=== PATIENT | female | born 1980 | race Caucasian/White ===

== ENCOUNTER → 2016-10-30 | Outpatient (CLI) | payer OTHER ==
[2016-10-30 11:57] LABS: CHCM 34.9; HCT 37.6 % (34.0-46.0); HGB 13.6 gm/dL (11.4-16.0); MCH 32.2 pg (25.0-35.0); MCHC 36.1 g/dL (31.0-37.0); MCV 89.4 fL (80.0-100.0); Mean Platelet Volume 6.8; RBC 4.21 m/uL (3.80-5.40); RDW 12.6 % (11.5-15.5); WBC 7.4 k/uL (3.8-10.6)
[2016-10-30 12:13] LABS: Glucose 116 mg/dL (74-99); Non-African American GFR(MDRD) >60 (>60 ml/min/1.73 sqM)
[2016-10-30 12:40] LABS: Hepatitis B Surface Ag Index 0.05
[2016-10-30 15:26] LABS: Treponemal Ab Non-Reactive (Non-Reactive)
[2016-10-31 11:53] LABS: Alpha Fetoprotein 27.2 ng/mL; Down Sydrome Risk 1:N/A (Negative); Gestational Age (days) 3; Human Chorionic Gonadotropin 61.1 IU/mL; Interpretation SeeBelow; Maternal Age Risk for Down 1:N/A; Maternal Age at EDD (Yrs) 38; Smoker No
== END | disposition home or self-care (01) ==
LOC: LABWHC1 11:27
PROVIDERS: ATTEND Obstetrics & Gynecology
DX: O26.811 Pregnancy related exhaustion and fatigue, first trimester (principal); Z3A.00 Weeks of gestation of pregnancy not specified
CPT/HCPCS: 36415; 82105; 82565; 82677; 82947; 84702; 85027; 86336; 86762; 86780; 86850; 86900; 86901; 87340; 87390

== ENCOUNTER → 2016-11-21 | Outpatient (CLI) | payer OTHER ==
[2016-11-22 09:13] LABS: Alpha Fetoprotein 60.6 ng/mL; B-HCG (M.O.M.) 1.18; Gestational Age (days) 4; Human Chorionic Gonadotropin 34.7 IU/mL; Inhibin A (M.O.M.) 0.93; Interpretation SeeBelow; Maternal Age at EDD (Yrs) 38; Smoker No
== END | disposition home or self-care (01) ==
LOC: LABWHC1 16:11
PROVIDERS: ATTEND Obstetrics & Gynecology
DX: Z34.82 Encounter for supervision of other normal pregnancy, second trimester (principal); Z3A.00 Weeks of gestation of pregnancy not specified
CPT/HCPCS: 36415; 82105; 82677; 84702; 86336

== ENCOUNTER → 2017-02-01 | Outpatient (CLI) | payer OTHER ==
[2017-02-01 10:27] LABS: CHCM 32.8; HCT 34.9 % (34.0-46.0); HGB 11.9 gm/dL (11.4-16.0); MCH 31.2 pg (25.0-35.0); MCV 91.9 fL (80.0-100.0); RDW 13.3 % (11.5-15.5); WBC 10.5 k/uL (3.8-10.6)
== END | disposition home or self-care (01) ==
LOC: LABWHC1 08:42
PROVIDERS: ATTEND Obstetrics & Gynecology
DX: Z34.82 Encounter for supervision of other normal pregnancy, second trimester (principal); Z3A.00 Weeks of gestation of pregnancy not specified
CPT/HCPCS: 36415; 82950; 85027

== ENCOUNTER 2017-04-30 07:53 | Inpatient (IN) | payer OTHER ==
[2017-04-30 08:29] LABS: Glucose,Whole Blood 82 mg/dL (75-99)
[2017-04-30] MEDS ORDERED: LIDOCAINE 1% (PF) 10 MG/ML (30 ML SDV) SQ PRN (09:00)
[2017-04-30] MEDS ORDERED: METHYLERGONOVINE 0.2 MG/ML 1 ML AMP IM PRN (09:00)
[2017-04-30] MEDS ORDERED: OXYTOCIN 20 UNITS/1000 ML NS 1,000 ML IV SCH (09:00)
[2017-04-30] MEDS ORDERED: AMPICILLIN 2,000 MG in SODIUM CHLORIDE 0.9% 100 ML IVPB STA (09:00)
[2017-04-30] MEDS ORDERED: OXYTOCIN 10 UNIT/ML 1 ML VIAL IM PRN (09:00)
[2017-04-30] MEDS ORDERED: TERBUTALINE 1 MG/ML VIAL SQ PRN (09:00)
[2017-04-30] MEDS ORDERED: CARBOPROST TROMETHAMINE 250 MCG/ML 1 ML AMP IM PRN (09:00)
[2017-04-30 09:21] VITALS: BMI 33.3
[2017-04-30 10:03] LABS: Basophils % (A) 0 %; Eosinophils % (A) 1 %; HCT 37.8 % (34.0-46.0); Hypochromasia Slight; Lymphocytes # (A) 1.4 k/uL (1.0-4.8); Lymphocytes % (A) 16 %; MCH 28.3 pg (25.0-35.0); MCHC 31.7 g/dL (31.0-37.0); MCV 89.4 fL (80.0-100.0); Mean Platelet Volume 8.8; Monocytes # (A) 0.4 k/uL (0-1.0); Monocytes % (A) 5 %; Neutrophils # (A) 6.8 k/uL (1.3-7.7); Neutrophils % (A) 77 %; Platelet Count 204 k/uL (150-450); RBC 4.22 m/uL (3.80-5.40); RDW 14.6 % (11.5-15.5); WBC 8.8 k/uL (3.8-10.6)
[2017-04-30 11:47] LABS: Glucose,Whole Blood 75 mg/dL (75-99)
[2017-04-30] MEDS ORDERED: fentaNYL (PF) 50 MCG/ML 5 ML AMP ONE (12:05)
[2017-04-30] MEDS ORDERED: SODIUM CHLORIDE 0.9% 100 ML BAG ONE (12:05)
[2017-04-30] MEDS ORDERED: BUPIVACAINE (PF) 0.25% 30 ML VIAL ONE (12:05)
[2017-04-30] MEDS ORDERED: ePHEDrine SULFATE/0.9% NACL/PF 50 MG/5 ML SYRINGE IV ONE (12:05)
[2017-04-30] MEDS: LACTATED RINGERS 1,000 ML IV SCH (12:26)
[2017-04-30] MEDS ORDERED: BUPIVACAINE (PF) 0.25% 25 ML, fentaNYL (PF) 200 MCG in SODIUM CHLORIDE 0.9% 71 ML EPIDURAL ONE (12:40)
[2017-04-30 12:48] LABS: Glucose,Whole Blood 87 mg/dL (75-99)
[2017-04-30] MEDS: AMPICILLIN 1,000 MG in SODIUM CHLORIDE 0.9% 50 ML IVPB SCH (13:31)
[2017-04-30 13:47] LABS: Glucose,Whole Blood 86 mg/dL (75-99)
[2017-04-30 14:46] LABS: Glucose,Whole Blood 83 mg/dL (75-99)
[2017-04-30 15:46] LABS: Glucose,Whole Blood 68 mg/dL (75-99)
[2017-04-30] MEDS ORDERED: diphenhydrAMINE 50 MG/ML 1 ML VIAL IVP PRN ×2 (17:15)
[2017-04-30] MEDS ORDERED: ACETAMINOPHEN TAB 325 MG TAB PO PRN (17:15)
[2017-04-30] MEDS ORDERED: LANOLIN CREAM 5 GM TUBE TOPICAL PRN (17:15)
[2017-04-30] MEDS ORDERED: diphenhydrAMINE 50 MG CAP PO PRN (17:15)
[2017-04-30] MEDS ORDERED: diphenhydrAMINE 25 MG CAP PO PRN (17:15)
[2017-04-30] MEDS ORDERED: SIMETHICONE 80 MG CHEWABLE PO PRN (17:15)
[2017-04-30] MEDS ORDERED: HYDROCORTISONE 2.5% RECTAL CREAM 30 GM TUBE RECTAL PRN (17:15)
[2017-04-30] MEDS ORDERED: Acetaminophen-Codeine 300-30mg TAB PO PRN ×2 (17:15)
[2017-04-30] MEDS ORDERED: BENZOCAINE/MENTHOL SPRAY 1 GM/SPRAY AEROSOL TOPICAL PRN (17:15)
[2017-04-30] MEDS ORDERED: ZOLPIDEM 5 MG TAB PO PRN (17:15)
[2017-04-30] MEDS ORDERED: WITCH HAZEL 1 EACH MED..PAD TOPICAL PRN (17:15)
--- NOTE | 2017-04-30 17:19 | P.HPOB ---
History of Present Illness H&P Date: 04/30/17 Chief Complaint: IUP at 39 weeks: Active labor: Gestational diabetes Is a 36-year-old G1 at 39 weeks gestation who arrives in active labor making cervical change dilated to 3 cm. Her course has been, K by gestational diabetes for which she was switched on the insulin late in the . Otherwise she has had no significant problems with the . Pertinent labs did include O+ blood type Rh antibody was negative, rubella immune, hepatitis B surface antigen/RPR/HIV and quad screen were all normal. On physical exam vital signs are stable and afebrile. Heart regular, lungs clear, extremities without pain. Osteopathic exam is unremarkable. She heart tones 1 130s to 140s and reactive. Assessment intrauterine at term. Gestational diabetes. Active labor. Plan expect spontaneous vaginal delivery with plans for epidural for analgesia. Pitocin augmentation of labor. Past Medical History Past Medical History: No Reported History History of Any Multi-Drug Resistant Organisms: None Reported Additional Past Surgical History / Comment(s): 1989 right ovary fallopian tube and appenectomy Past Psychological History: Anxiety, Depression Smoking Status: Former smoker - Past Family History Father Family Medical History: No Reported History Medications and Allergies Home Medications Medication Instructions Recorded Confirmed Type FLUoxetine HCL [PROzac] 40 mg PO DAILY 02/13/17 02/13/17 History Allergies Allergy/AdvReac Type Severity Reaction Status Date / Time No Known Allergies Allergy Verified 04/30/17 08:00 Exam Osteopathic Statement: *. No significant issues noted on an osteopathic structural exam other than those noted in the History and Physical/Consult. - Vital Signs Vital signs: Vital Signs Temp Pulse Resp BP BP Pulse Ox 04/30/17 17:05 98.0 F 91 16 122/69 04/30/17 08:00 98.2 F 69 16 121/83 99 Intake and Output 04/30/17 04/30/17 04/30/17 06:59 14:59 22:59 Intake Total 1700 Balance 1700 Intake: IV 1700 Lactated Ringers 1,000 ml 1700 @ 125 mls/hr IV .Q8H ROSEMARIE Rx#:[id number] Other: Weight 85.275 kg Patient Weight 05/01/17 06:59 Weight 85.275 kg Results Result Diagrams: 04/30/17 09:20 Abnormal Lab Results - Last 24 Hours (Table) 04/30/17 Range/Units 15:35 POC Glucose (mg/dL) 68 L (75-99) mg/dL
--- NOTE | 2017-04-30 17:20 | P.PROBDLV ---
Vaginal Delivery Note - . Vaginal Delivery Note: To complete and pushing with spontaneous vaginal delivery of a viable male over a first-degree perineal laceration. Following delivery of the head anterior posterior shoulders were delivered with gentle downward upper traction followed by the remainder the baby. Mouth nares were then bulb suctioned and baby was placed on mother's abdomen where the umbilical cord was clamped cut usual fashion an nursery personnel was present to assume care. Placenta was then delivered intact and Pitocin was added to the IV. Inspection of perineum revealed a first the laceration which was repaired in interrupted fashion with 3-0 Vicryl and a small tear on the right side of the vagina near the base between 6 and 8:00 which was again repaired with interrupted 3-0 Vicryl. There are 2 slight avulsion's in the vagina but these were not bleeding and were left alone. scores are pending as is the weight currently both mother and baby appear stable.
[2017-04-30] MEDS: SENNOSIDES-DOCUSATE SODIUM 1 EACH TAB PO SCH (23:47)
[2017-05-01] MEDS: SENNOSIDES-DOCUSATE SODIUM 1 EACH TAB PO SCH ×2 (07:58→21:15)
--- NOTE | 2017-05-01 08:25 | P.PNOBGVD ---
Subjective - Subjective Principal diagnosis: Post day 1 Interval history: Overall doing very well. Involuting, voiding and tolerating her diet. She voices no complaints. Patient reports: Reports appetite normal, Reports voiding normally, Reports pain well controlled, Reports ambulating normally [place]: doing well Objective - Latest Vital Signs Latest vital signs: Vital Signs Temp Pulse Resp BP Pulse Ox 05/01/17 04:00 98.3 F 140 H 50 H 05/01/17 00:00 98.2 F 145 H 55 H 04/30/17 20:00 98.0 F 100 16 110/70 98 04/30/17 19:05 97.3 F L 80 16 120/70 04/30/17 18:18 81 16 120/70 04/30/17 18:04 96 16 123/73 04/30/17 17:50 90 16 111/54 04/30/17 17:35 86 16 128/67 04/30/17 17:20 93 16 123/64 04/30/17 17:05 98.0 F 91 16 122/69 Intake and Output 04/30/17 05/01/17 05/01/17 22:59 06:59 14:59 Other: # Voids 1 - Exam Lungs: bilateral: normal Chest: Normal S1, Normal S2 Extremities: Present: normal Abdomen: Present: normal appearance, soft Uterus: Present: normal, firm - Labs Labs: Abnormal Lab Results - Last 24 Hours (Table) 04/30/17 Range/Units 15:35 POC Glucose (mg/dL) 68 L (75-99) mg/dL
[2017-05-01] MEDS: IBUPROFEN 600 MG TAB PO PRN ×2 (10:35→17:43)
[2017-05-01 19:56] LABS: Glucose,Whole Blood 117 mg/dL (75-99)
[2017-05-01] MEDS: AMPICILLIN 1,000 MG in SODIUM CHLORIDE 0.9% 50 ML IVPB SCH ×2 (21:16→21:17)
[2017-05-01] MEDS: LACTATED RINGERS 1,000 ML IV SCH (21:17)
[2017-05-02 04:44] VITALS: TEMP 97.8
[2017-05-02] MEDS: IBUPROFEN 600 MG TAB PO PRN (06:22)
[2017-05-02 09:05] VITALS: BP 128/78; PULSE 64; RESP 16
[2017-05-02] MEDS ORDERED: DIPH,PERTUS(ACELL)TETVAC-LF 0.5 ML VIAL IM ONE (09:40)
--- NOTE | 2017-05-02 10:13 | P.DS ---
Providers Date of admission: 04/30/17 08:44 Expected date of discharge: 05/02/17 Attending physician: [facility] Course: Janine is doing very well day 2. She is ambulating, voiding, and she is tolerating her diet. She voices no complaints. Vital signs are stable and afebrile. Heart regular, lungs clear, extremities without pain. Abdomen is soft uterus is firm and lochia is reported to be light. Assessment day 2. Plan discharged home follow up with me in 6 weeks. Prescription for breast pump has been provided and discharge instructions thoroughly reviewed. She is stable for discharge this time. Patient Condition at Discharge: Good Plan - Discharge Summary New Discharge Prescriptions: No Action FLUoxetine HCL [PROzac] 40 mg PO DAILY Discharge Medication List FLUoxetine HCL [PROzac] 40 mg PO DAILY 02/13/17 [History] Follow up Appointment(s)/Referral(s): John Peoples DO [Doctor of Osteopathic Medicine] - 6 Weeks Activity/Diet/Wound Care/Special Instructions: No heavy lifting, limit stairs and driving, and pelvic rest. Call the office for any high tempratures, heavy bleeding, or severe pain Discharge Disposition: HOME SELF-CARE
[2017-05-02] MEDS: SENNOSIDES-DOCUSATE SODIUM 1 EACH TAB PO SCH (14:05)
== END 2017-05-02 14:25 | disposition home or self-care (01) | DRG 775 ==
LOC: FBPOP 07:53 → 4FBP 08:44
PROVIDERS: ADMIT Obstetrics & Gynecology; ATTEND Obstetrics & Gynecology
PROC: 10E0XZZ Delivery of Products of Conception, External Approach (ICD-10-PCS; principal; 2017-04-30)
PROC: 0HQ9XZZ Repair Perineum Skin, External Approach (ICD-10-PCS; 2017-04-30)
PROC: 00HU33Z Insertion of Infusion Device into Spinal Canal, Percutaneous Approach (ICD-10-PCS; 2017-04-30)
PROC: 3E0R3NZ Introduction of Analgesics, Hypnotics, Sedatives into Spinal Canal, Percutaneous Approach (ICD-10-PCS; 2017-04-30)
DX: O24.424 Gestational diabetes mellitus in childbirth, insulin controlled (principal); O99.344 Other mental disorders complicating childbirth; F32.9 Major depressive disorder, single episode, unspecified; O70.0 First degree perineal laceration during delivery; F41.9 Anxiety disorder, unspecified; Z37.0 Single live birth; Z3A.39 39 weeks gestation of pregnancy; Z87.891 Personal history of nicotine dependence; Z79.899 Other long term (current) drug therapy
CPT/HCPCS: 59025; 85025; 88307; 90715; 99213

== ENCOUNTER → 2017-07-09 | Outpatient (CLI) | payer OTHER | END | disposition home or self-care (01) | LOC: LABWHC1 13:36 | PROVIDERS: ATTEND Physician Assistant | DX: N91.2 Amenorrhea, unspecified (principal) | CPT/HCPCS: 81025 ==

== ENCOUNTER → 2017-07-09 | Outpatient (CLI) | payer OTHER ==
--- NOTE | 2017-07-09 17:31 | XR ---
Bilateral wrists HISTORY: Bilateral wrist pain 4 views of each wrist submitted There is positive ulnar variance present bilaterally. Bone mineralization and joint spaces are mainta ined. No fracture or dislocation. Probable geode cyst noted incidentally within the carpal bones. IMPRESSION: Positive ulnar variance, wrist MRI may be of benefit.
== END | disposition home or self-care (01) ==
LOC: RADXRMAIN 12:20
PROVIDERS: ATTEND Family Medicine
DX: M25.531 Pain in right wrist (principal); M25.532 Pain in left wrist

== ENCOUNTER 2017-08-05 10:56 | Emergency (ER) | payer OTHER ==
[2017-08-05 11:41] VITALS: RESP 18
[2017-08-05 12:37] LABS: HCT 43.9 % (34.0-46.0); HGB 14.5 gm/dL (11.4-16.0); MCH 28.2 pg (25.0-35.0); MCV 85.2 fL (80.0-100.0); Mean Platelet Volume 6.8; Platelet Count 323 k/uL (150-450); RBC 5.15 m/uL (3.80-5.40); RDW 15.4 % (11.5-15.5); WBC 8.4 k/uL (3.8-10.6)
[2017-08-05 12:46] LABS: ALT 31 U/L (9-52); AST 34 U/L (14-36); Albumin 4.1 g/dL (3.5-5.0); Alkaline Phosphatase 154 U/L (38-126); Anion Gap 14 mmol/L; Blood Urea Nitrogen 16 mg/dL (7-17); Calcium 9.8 mg/dL (8.4-10.2); Carbon Dioxide 22 mmol/L (22-30); Chloride 106 mmol/L (98-107); Glucose 77 mg/dL (74-99); Potassium 4.7 mmol/L (3.5-5.1); Sodium 142 mmol/L (137-145); Total Bilirubin 0.4 mg/dL (0.2-1.3); Total Protein 7.5 g/dL (6.3-8.2)
--- NOTE | 2017-08-05 13:18 | XR ---
EXAMINATION TYPE: XR chest 2V DATE OF EXAM: 08/05/2017 COMPARISON: None HISTORY: 37-year-old female with chest and back pain, hemoptysis TECHNIQUE: PA and lateral views FINDINGS: The cardiomediastinal silhouette, aorta, and pulmonary vasculature are within normal limits. Some str prasanna atelectasis in the lower lungs. Otherwise, lungs and pleural spaces are clear. IMPRESSION: No acute cardiopulmonary process.
--- NOTE | 2017-08-05 13:39 | ED ---
URI HPI - General Chief Complaint: Upper Respiratory Infection Stated Complaint: cough Time Seen by Provider: 08/05/17 13:27 Source: patient Mode of arrival: ambulatory Limitations: no limitations - History of Present Illness Initial Comments: Patient presents with cough for approximately one half weeks. She states she was seen by primary care physician, completed a course of azithromycin. Patient states cough improved, however it returned last night, states she had severe coughing fit, causing her to have right lateral rib pain. Denies any pain at rest, pain only occurs when coughing. Denies any trauma to the ribs. Patient states she's had some postnasal drip. Denies fevers, chills, nausea, vomiting, diarrhea. Patient states she has had some yellowish green sputum with cough. MD Complaint: cough, rhinorrhea Severity: moderate - Related Data Home Medications Medication Instructions Recorded Confirmed FLUoxetine HCL [PROzac] 40 mg PO DAILY 02/13/17 08/05/17 Ibuprofen [Advil] 800 - 1,200 mg PO Q6HR PRN 08/05/17 08/05/17 Previous Rx's Medication Instructions Recorded Albuterol Inhaler [Ventolin Hfa 1 - 2 puff INHALATION Q4HR PRN #1 08/05/17 Inhaler] inhaler Allergies Allergy/AdvReac Type Severity Reaction Status Date / Time No Known Allergies Allergy Verified 08/05/17 13:23 Review of Systems ROS Statement: Those systems with pertinent positive or pertinent negative responses have been documented in the HPI. Constitutional: Denies: fever, chills, weakness Eyes: Denies: eye pain, eye discharge ENT: Reports: other (Postnasal drip). Denies: ear pain, throat pain, congestion Respiratory: Reports: cough, hemoptysis (Mild, blood-tinged sputum once this morning.). Denies: dyspnea, wheezes, stridor Cardiovascular: Reports: chest pain (Right lateral ribs, only when coughing.) Endocrine: Denies: fatigue Gastrointestinal: Denies: abdominal pain, nausea, vomiting, diarrhea, constipation Genitourinary: Denies: urgency, dysuria Musculoskeletal: Denies: back pain, arthralgia, myalgia Skin: Denies: rash, change in color Neurological: Denies: headache, confusion Past Medical History Past Medical History: No Reported History History of Any Multi-Drug Resistant Organisms: None Reported Past Surgical History: Appendectomy Additional Past Surgical History / Comment(s): 1989 right ovary fallopian tube Past Psychological History: Anxiety, Depression Smoking Status: Former smoker Past Alcohol Use History: Occasional Past Drug Use History: None Reported - Past Family History Father Family Medical History: No Reported History General Exam - General Exam Comments Initial Comments: Sitting up in chair, well-appearing, smiling and laughing. Very pleasant. Conversing normally. Limitations: no limitations General appearance: alert, in no apparent distress Head exam: Present: atraumatic, normocephalic Eye exam: Present: normal appearance, PERRL, EOMI. Absent: scleral icterus, conjunctival injection, nystagmus, periorbital swelling ENT exam: Present: normal oropharynx, mucous membranes moist, normal external ear exam Neck exam: Present: normal inspection, full ROM. Absent: meningismus Respiratory exam: Present: normal lung sounds bilaterally, chest wall tenderness (Mild right lateral chest wall tenderness). Absent: respiratory distress, wheezes, rales, rhonchi, stridor Cardiovascular Exam: Present: regular rate, normal rhythm GI/Abdominal exam: Present: soft. Absent: distended, tenderness, guarding, rebound Extremities exam: Present: other (No gross deformities of the extremities) Neurological exam: Present: alert, oriented X3 Psychiatric exam: Present: normal affect, normal mood Skin exam: Present: warm, dry, intact, normal color. Absent: rash, cyanosis, diaphoretic, erythema Course Vital Signs 08/05/17 11:38 Temperature 97.4 F L Pulse Rate 81 Respiratory 18 Rate Blood Pressure 129/76 O2 Sat by Pulse 95 Oximetry Medical Decision Making - Medical Decision Making No significant lab abnormalities on CBC, BMP, LFTs. Chest x-ray shows no acute process. Labs and chest x-ray were ordered by triage prior to patient being seen by physician. Patient updated with all results. No signs of sepsis at this time. Patient's hemoptysis likely secondary to bronchitis. Patient states she has a primary care physician she can follow up within 1-2 days. Discussed symptomatic control , hydration. Tylenol for pain has patient is breast-feeding. Prescription albuterol given. Junk ER for new or worsening symptoms. Patient understands and agrees. At this time I do not believe patient's symptoms represent a more malignant process requiring IV antibiotics, admission to hospital, further workup. Patient agrees. - Lab Data Result diagrams: 08/05/17 12:20 08/05/17 12:20 Lab Results 08/05/17 08/05/17 08/05/17 Range/Units 12:20 12:20 12:20 WBC 8.4 (3.8-10.6) k/uL RBC 5.15 (3.80-5.40) m/uL Hgb 14.5 (11.4-16.0) gm/dL Hct 43.9 (34.0-46.0) % MCV 85.2 (80.0-100.0) fL MCH 28.2 (25.0-35.0) pg MCHC 33.0 (31.0-37.0) g/dL RDW 15.4 (11.5-15.5) % Plt Count 323 (150-450) k/uL Sodium 142 (137-145) mmol/L Potassium 4.7 (3.5-5.1) mmol/L Chloride 106 (98-107) mmol/L Carbon Dioxide 22 (22-30) mmol/L Anion Gap 14 mmol/L BUN 16 (7-17) mg/dL Creatinine 0.82 (0.52-1.04) mg/dL Est GFR (CKD-EPI)AfAm >90 (>60 ml/min/1.73 sqM) Est GFR (CKD-EPI)NonAf >90 (>60 ml/min/1.73 sqM) Glucose 77 (74-99) mg/dL Calcium 9.8 (8.4-10.2) mg/dL Total Bilirubin 0.4 (0.2-1.3) mg/dL AST 34 (14-36) U/L ALT 31 (9-52) U/L Alkaline Phosphatase 154 H (38-126) U/L Total Protein 7.5 (6.3-8.2) g/dL Albumin 4.1 (3.5-5.0) g/dL Urine HCG, Qual Not Detected (Not Detectd) Disposition Clinical Impression: Bronchitis Disposition: HOME SELF-CARE Condition: Good Instructions: Acute Bronchitis (ED) Additional Instructions: Follow-up with your primary care physician one to 2 days. Return to ER for worsening symptoms. Prescriptions: Albuterol Inhaler [Ventolin Hfa Inhaler] 1 - 2 puff INHALATION Q4HR PRN #1 inhaler PRN Reason: Shortness Of Breath Is patient prescribed a controlled substance at discharge?: No Referrals: Sergio Walton MD [Primary Care Provider] - 1-2 days
[2017-08-05 14:03] VITALS: BP 131/70; PULSE 67; TEMP 98.1
== END 2017-08-05 14:03 | disposition home or self-care (01) ==
LOC: EC 10:56
DX: J40 Bronchitis, not specified as acute or chronic (principal); J34.89 Other specified disorders of nose and nasal sinuses; R09.82 Postnasal drip; F32.9 Major depressive disorder, single episode, unspecified; F41.9 Anxiety disorder, unspecified; Z87.891 Personal history of nicotine dependence; Z79.899 Other long term (current) drug therapy
CPT/HCPCS: 36415; 71046; 80053; 81025; 85027; 99283

== ENCOUNTER → 2018-09-12 | Outpatient (CLI) | payer BC ==
--- NOTE | 2018-09-12 11:57 | XR ---
EXAMINATION TYPE: XR ankle complete LT DATE OF EXAM: 09/12/2018 COMPARISON: NONE HISTORY: Palpable abnormality FINDINGS: Three views of the ankle demonstrate the ankle mortise to be intact and symmetric. The joint spaces are preserved. The osseous structures are intact. Tiny spurs at the calcaneal plantar and Achilles insertion. IMPRESSION: 1. No definite acute fracture or dislocation, if symptoms persist follow-up study in 7 to 10 days wou ld be suggested.
--- NOTE | 2018-09-12 12:00 | XR ---
EXAMINATION TYPE: XR foot complete LT DATE OF EXAM: 09/12/2018 COMPARISON: NONE HISTORY: Pain on the dorsum of the foot with lump TECHNIQUE: Three views are submitted. FINDINGS: The osseous structures are intact. There is no acute fracture or dislocation. Joint spaces are p reserved. Calcaneal tiny spurs are noted. Hypertrophic change of the head first metatarsal noted. IMPRESSION: 1. No osseous lesion identified. If there is concern for soft tissue abnormality correlate with MRI.
== END | disposition home or self-care (01) ==
LOC: RADXRMAIN 11:15
PROVIDERS: ATTEND Midwife
DX: S93.402S Sprain of unspecified ligament of left ankle, sequela (principal)

== ENCOUNTER → 2018-10-01 | Outpatient (CLI) | payer BC ==
--- NOTE | 2018-10-02 10:21 | XR ---
Lumbar spine HISTORY: Low back pain with radiation to legs 3 views of the lumbar spine Lumbar vertebral bodies show preserved height, alignment, and bone mineralization. 6 nonrib-bearing l umbar segments are present. Some loss of disc height at the lumbosacral junction. Sclerosis present i n the posterior element compatible with facet arthropathy. IMPRESSION: Degenerative disc disease and facet arthropathy.
== END | disposition home or self-care (01) ==
LOC: RADXRMAIN 16:04
PROVIDERS: ATTEND Family Medicine
DX: M51.36 Other intervertebral disc degeneration, lumbar region (principal); M46.96 Unspecified inflammatory spondylopathy, lumbar region
CPT/HCPCS: 72100

== ENCOUNTER → 2018-11-17 | Outpatient (CLI) | payer BC ==
--- NOTE | 2018-11-18 08:18 | MM ---
Reason for exam: screening (asymptomatic). Baseline mammogram. History: Patient had first child at age 37. Physical Findings: Nurse did not find any significant physical abnormalities on exam. MG 3D Screening Mammo W/Cad Bilateral CC and MLO view(s) were taken. No prior studies available for comparison. There are scattered fibroglandular densities. Asymmetric breast tissue left upper outer quadrant. ASSESSMENT: Incomplete: need additional imaging evaluation, BI-RAD 0 RECOMMENDATION: Special view mammogram of the left breast.
--- NOTE | 2018-11-18 08:22 | MM ---
Reason for exam: additional evaluation requested from abnormal screening. History: Patient had first child at age 37. Physical Findings: Nurse did not find any significant physical abnormalities on exam. MG 3D Work Up W/Cad LT ML and spot compression MLO view(s) were taken of the left breast. There are scattered fibroglandular densities. No discrete abnormality. ASSESSMENT: Negative, BI-RAD 1 RECOMMENDATION: Return to routine screening mammogram schedule for both breasts.
== END | disposition home or self-care (01) ==
LOC: RADMAMWWP 07:34
PROVIDERS: ATTEND Obstetrics & Gynecology
DX: R92.8 Other abnormal and inconclusive findings on diagnostic imaging of breast (principal)
CPT/HCPCS: 77061; 77063; 77065; 77067

== ENCOUNTER → 2020-02-16 | Outpatient (CLI) | payer BC ==
[2020-02-16 19:59] LABS: Total Protein,CSF 56 mg/dL (12-60)
[2020-02-16 20:42] LABS: Appearance,CSF Clear; CSF Tube Number 4; CSF Tube Volume 3; Nucleated Cells, CSF 1 u/L (0-5); Red Blood Cell,CSF 0 u/L (0-10)
== END | disposition home or self-care (01) ==
LOC: LABWHC1 08:48
PROVIDERS: ATTEND Psychiatry & Neurology Pain Medicine
DX: R90.82 White matter disease, unspecified (principal)
CPT/HCPCS: 36415; 82040; 82042; 82784; 83873; 83916; 84157; 87801; 89050

== ENCOUNTER → 2020-04-07 | Outpatient (CLI) | payer BC ==
--- NOTE | 2020-04-08 10:31 | MM ---
Reason for exam: screening (asymptomatic). Last mammogram was performed 1 year and 5 months ago. History: Patient had first child at age 37. Physical Findings: A clinical breast exam by your physician is recommended on an annual basis and results should be correlated with mammographic findings. MG 3D Screening Mammo W/Cad Bilateral CC and MLO view(s) were taken. Prior study comparison: November 17, 2018, left breast MG 3d work up w/cad LT. November 17, 2018, bilateral MG 3d screening mammo w/cad. The breast tissue is heterogeneously dense. This may lower the sensitivity of mammography. There is no discrete abnormality. No significant changes when compared with prior studies. ASSESSMENT: Negative, BI-RAD 1 RECOMMENDATION: Routine screening mammogram of both breasts in 1 year.
== END | disposition home or self-care (01) ==
LOC: RADMAMWWP 13:42
PROVIDERS: ATTEND Obstetrics & Gynecology
DX: Z12.31 Encounter for screening mammogram for malignant neoplasm of breast (principal)
CPT/HCPCS: 77063; 77067

== ENCOUNTER → 2020-05-10 | Outpatient (CLI) | payer BC | END | disposition home or self-care (01) | LOC: LABWHC1 15:14 | PROVIDERS: ATTEND Physician Assistant | DX: R09.81 Nasal congestion (principal) | CPT/HCPCS: U0003; C9803; U0005 ==

== ENCOUNTER 2022-01-10 12:47 | Emergency (ER) | payer BC ==
[2022-01-10 12:52] VITALS: RESP 16; TEMP 98.6
--- NOTE | 2022-01-10 13:59 | ED ---
General Adult HPI - General Chief complaint: Abdominal Pain Stated complaint: back & side pain Time Seen by Provider: 01/10/22 13:29 Source: patient Mode of arrival: ambulatory Limitations: no limitations - History of Present Illness Initial comments: Dictation was produced using [employer] dictation software. please excuse any grammatical, word or spelling errors. Chief Complaint: 41-year-old female presents emergency Department with left flank pain History of Present Illness: Or 1-year-old female presents emergency department for 3 weeks of left flank pain. She states that the pain initially began towards her as a vertebral angle. It moved down to her flank and is now on her lower groin and left abdomen. Patient states she's had some nausea. No diarrhea. No fevers. States that the pain is not causing her to double over. She has not no 70 changes in her urine. Patient has no history of kidney stones. She does have history of ovarian mass that needed to be removed surgically. The ROS documented in this emergency department record has been reviewed and confirmed by me. Those systems with pertinent positive or negative responses have been documented in the HPI. All other systems are other negative and/or noncontributory. PHYSICAL EXAM: General Impression: Alert and oriented x3, not in acute distress HEENT: Normocephalic atraumatic, extra-ocular movements intact, pupils equal and reactive to light bilaterally, mucous membranes moist. Cardiovascular: Heart regular rate and rhythm Chest: Able to complete full sentences, no retractions, no tachypnea Abdomen: abdomen soft, palpatory pain to the left lower quadrant non-distended, no organomegaly Musculoskeletal: Pulses present and equal in all extremities, no peripheral edema Motor: no focal deficits noted Neurological: CN II-XII grossly intact, no focal motor or sensory deficits noted Skin: Intact with no visualized rashes Psych: Normal affect and mood ED course: 41-year-old female presents emergency department for 3 weeks of left flank and left abdominal pain. Vital signs upon arrival are within acceptable limits. Laboratory evaluation obtained. CBC and metabolic panels within acceptable limits. Urinalysis negative. Computed tomography scan of the abdomen and pelvis with contrast shows suspected dermoid within the left adnexa. Nonsp ecific bowel pattern mild ileus may be present. No findings to suggest obstruction. Patient observed in emergency department for approximately 2 hours and 30 ministrations reevaluated at bedside at 3:20 PM. Findings and results were discussed with the patient. She is told to follow-up with agricultural research technologist for outpatient management of left ovarian cyst. - Related Data Home Medications Medication Instructions Recorded Confirmed FLUoxetine HCL [Sarafem] 50 mg PO DAILY 01/10/22 01/10/22 methylPREDNISolone [Medrol Dose See Taper PO DIRECTED 01/10/22 01/10/22 Pack] Allergies Allergy/AdvReac Type Severity Reaction Status Date / Time No Known Allergies Allergy Verified 01/10/22 14:29 Review of Systems ROS Statement: Those systems with pertinent positive or pertinent negative responses have been documented in the HPI. ROS Other: All systems not noted in ROS Statement are negative. Past Medical History Past Medical History: No Reported History History of Any Multi-Drug Resistant Organisms: None Reported Past Surgical History: Appendectomy Additional Past Surgical History / Comment(s): 1990 right ovary fallopian tube out Past Psychological History: Anxiety, Depression Smoking Status: Current every day smoker Past Alcohol Use History: Occasional Past Drug Use History: None Reported - Past Family History Father Family Medical History: No Reported History General Exam Limitations: no limitations Course Vital Signs 01/10/22 01/10/22 12:50 14:22 Temperature 98.6 F Pulse Rate 93 86 Respiratory 16 16 Rate Blood Pressure 137/84 130/68 O2 Sat by Pulse 98 98 Oximetry Medical Decision Making - Lab Data Result diagrams: 01/10/22 14:19 01/10/22 14:51 Lab Results 01/10/22 01/10/22 01/10/22 Range/Units 14:19 14:19 14:51 WBC 9.2 (3.8-10.6) k/uL RBC 4.66 (3.80-5.40) m/uL Hgb 14.6 (11.4-16.0) gm/dL Hct 43.7 (34.0-46.0) % MCV 93.8 (80.0-100.0) fL MCH 31.4 (25.0-35.0) pg MCHC 33.5 (31.0-37.0) g/dL RDW 12.0 (11.5-15.5) % Plt Count 254 (150-450) k/uL MPV 7.1 Neutrophils % 89 % Lymphocytes % 9 % Monocytes % 2 % Eosinophils % 0 % Basophils % 0 % Neutrophils # 8.2 H (1.3-7.7) k/uL Lymphocytes # 0.8 L (1.0-4.8) k/uL Monocytes # 0.1 (0-1.0) k/uL Eosinophils # 0.0 (0-0.7) k/uL Basophils # 0.0 (0-0.2) k/uL Sodium 136 L (137-145) mmol/L Potassium 4.6 (3.5-5.1) mmol/L Chloride 103 (98-107) mmol/L Carbon Dioxide 19 L (22-30) mmol/L Anion Gap 14 mmol/L BUN 10 (7-17) mg/dL Creatinine 0.67 (0.52-1.04) mg/dL Est GFR (CKD-EPI)AfAm >90 (>60 ml/min/1.73 sqM) Est GFR (CKD-EPI)NonAf >90 (>60 ml/min/1.73 sqM) Glucose 112 H (74-99) mg/dL Calcium 10.0 (8.4-10.2) mg/dL Total Bilirubin 0.4 (0.2-1.3) mg/dL AST 27 (14-36) U/L ALT 19 (4-34) U/L Alkaline Phosphatase 66 (38-126) U/L Total Protein 7.7 (6.3-8.2) g/dL Albumin 4.9 (3.5-5.0) g/dL Lipase 72 (23-300) U/L Urine Color Colorless Urine Appearance Clear (Clear) Urine pH 5.5 (5.0-8.0) Ur Specific [place] 1.004 (1.001-1.035) Urine Protein Negative (Negative) Urine Glucose (UA) Negative (Negative) Urine Ketones Negative (Negative) Urine Blood Negative (Negative) Urine Nitrite Negative (Negative) Urine Bilirubin Negative (Negative) Urine Urobilinogen <2.0 (<2.0) mg/dL Ur Leukocyte Esterase Negative (Negative) Disposition Clinical Impression: Ovarian cyst Disposition: HOME SELF-CARE Condition: Good Instructions (If sedation given, give patient instructions): Ovarian Cyst (ED) Additional Instructions: Follow-up with agricultural research technologist for outpatient management of suspected left ovarian dermoid cyst Is patient prescribed a controlled substance at d/c from ED?: No Referrals: Tin Lebron DO [Primary Care Provider] - 1-2 days Time of Disposition: 15:24
[2022-01-10 14:27] LABS: Basophils % (A) 0 %; Eosinophils % (A) 0 %; HCT 43.7 % (34.0-46.0); HGB 14.6 gm/dL (11.4-16.0); Lymphocytes # (A) 0.8 k/uL (1.0-4.8); Lymphocytes % (A) 9 %; MCH 31.4 pg (25.0-35.0); MCHC 33.5 g/dL (31.0-37.0); MCV 93.8 fL (80.0-100.0); Mean Platelet Volume 7.1; Monocytes # (A) 0.1 k/uL (0-1.0); Monocytes % (A) 2 %; Neutrophils # (A) 8.2 k/uL (1.3-7.7); Neutrophils % (A) 89 %; Platelet Count 254 k/uL (150-450); RBC 4.66 m/uL (3.80-5.40); WBC 9.2 k/uL (3.8-10.6)
[2022-01-10 14:30] LABS: Appearance,Urine Clear (Clear); Bilirubin,Urine Negative (Negative); Blood,Urine Negative (Negative); Color,Urine Colorless; Glucose,Urine (UA) Negative (Negative); Ketones,Urine Negative (Negative); Leukocyte Esterase,Urine Negative (Negative); Nitrite,Urine Negative (Negative); PH, Urine 5.5 (5.0-8.0); Protein,Urine Negative (Negative); Specific Gravity,Urine 1.004 (1.001-1.035); Urobilinogen,Urine <2.0 mg/dL (<2.0)
[2022-01-10 15:05] LABS: ALT 19 U/L (4-34); AST 27 U/L (14-36); African American GFR (CKD) >90 (>60 ml/min/1.73 sqM); Albumin 4.9 g/dL (3.5-5.0); Alkaline Phosphatase 66 U/L (38-126); Anion Gap 14 mmol/L; Blood Urea Nitrogen 10 mg/dL (7-17); Carbon Dioxide 19 mmol/L (22-30); Chloride 103 mmol/L (98-107); Glucose 112 mg/dL (74-99); Lipase 72 U/L (23-300); Non-African American GFR(CKD) >90 (>60 ml/min/1.73 sqM); Potassium 4.6 mmol/L (3.5-5.1); Sodium 136 mmol/L (137-145); Total Bilirubin 0.4 mg/dL (0.2-1.3); Total Protein 7.7 g/dL (6.3-8.2)
--- NOTE | 2022-01-10 15:16 | CT ---
EXAMINATION TYPE: CT abdomen pelvis w con DATE OF EXAM: 01/10/2022 COMPARISON: None INDICATION: left flank pain DLP: 749.7 mGycm, Automated exposure control for dose reduction was used. CONTRAST: 100 mL of Isovue 300. Study performed without Oral Contrast TECHNIQUE: Axial images were obtained from above the diaphragm to the pubic rami in the axial plane a t 5 mm thick sections. Reconstructed images are reviewed on the computer in the coronal plane. FINDINGS: Limited CT sections are obtained the lung bases. The lung bases are clear. CT ABDOMEN: Liver: Normal Spleen: Normal Pancreas: Normal Adrenal glands: The adrenal glands are normal. Gallbladder: Normal Kidneys: No masses are evident. No hydronephrosis is present. No cysts are present. Delayed images were obtained through the kidneys, which remain unremarkable. Aorta: Normal Inferior vena cava: Normal. CT PELVIS: Loops of bowel within the abdomen and pelvis are normal. Diffuse fluid-filled small bowel loops a re noted. No dilated loops of bowel are evident. Fecal debris is within the colon. No dilated colon i s evident. Appendix: Normal as visualized. Urinary bladder: Normal. Genitourinary structures: Uterus appears normal. There is a low density structure in the left adnexa which contains a calcification. Consider dermoid within the differential. This area measures 2.3 cm i n size. Follow-up ultrasound could be performed. Right adnexa is unremarkable. Osseous structures: No suspicious lytic or sclerotic lesions. IMPRESSIONS: 1. Suspected dermoid within the left adnexa. This could be followed up with ultrasound. 2. Nonspecific bowel pattern. Mild ileus may be present. No suspicious changes to suggest obstruction .
[2022-01-10 15:44] VITALS: BP 120/86; PULSE 68
== END 2022-01-10 15:44 | disposition home or self-care (01) ==
LOC: EC 12:47
DX: N83.202 Unspecified ovarian cyst, left side (principal); F17.200 Nicotine dependence, unspecified, uncomplicated
CPT/HCPCS: 36415; 80053; 83690; 85025; 81003; 74177; 99284; Q9967

== ENCOUNTER → 2022-02-14 | Outpatient (CLI) | payer BC ==
--- NOTE | 2022-02-14 13:37 | US ---
EXAMINATION TYPE: US pelvic complete DATE OF EXAM: 02/14/2022 COMPARISON: NONE CLINICAL HISTORY: N83.[address]VARIAN [address] Recent [address] showed left dermoid, patient has history of right ovary removal due to dermoid at age 9, TECHNIQUE: TA. Transabdominal sonographic images of the pelvis were acquired. Date of LMP: 02/06/2022 EXAM MEASUREMENTS: Uterus: 9.4 x 5.1 x 4.5 cm Endometrial Stripe: 0.6 cm Right Ovary: Surgically absent Left Ovary: 2.8 x 2.1 x 2.4 cm 1. Uterus: Anteverted wnl 2. Endometrium: wnl 3. Right Ovary: Surgically absent 4. Left Ovary: superior portion of left ovary produces hyperechoic, non mobile structure that correl ates with CT as a dermoid = 2.0 x 2.1 x 2.5cm, inferior follicle seen 5. Bilateral Adnexa: wnl 6. Posterior cul-de-sac: wnl IMPRESSION: 1. 2 cm left adnexal echogenic mass can be compatible with a dermoid.
== END | disposition home or self-care (01) ==
LOC: RADUSWWP 12:41
PROVIDERS: ATTEND Obstetrics & Gynecology
DX: N83.8 Other noninflammatory disorders of ovary, fallopian tube and broad ligament (principal)
CPT/HCPCS: 76856

== ENCOUNTER → 2022-05-09 | Outpatient (CLI) | payer BC ==
--- NOTE | 2022-05-10 13:25 | MM ---
Reason for Exam: Screening (asymptomatic). Last mammogram was performed 2 year(s) and 1 month(s) ago. Patient History: Menarche at age 11. First Full-Term at age 37. Late child-bearing (after 30). Right ovary removed at age 9. Premenopausal. Patient has history of breast feeding. Last menstrual period: 04/21/2022 Risk Values: Nila 5 year model risk: 1.0%. NCI Lifetime model risk: 13.2%. Prior Study Comparison: 11/17/2018 Bilateral Screening Mammogram, [facility]. 11/17/2018 Left Diagnostic Mammogram, [facility]. 04/07/2020 Bilateral Screening Mammogram, [facility]. Tissue Density: The breast tissue is heterogeneously dense. This may lower the sensitivity of mammography. Findings: Analyzed By CAD. Pattern appears stable. There is focal asymmetry in the upper-outer aspect left breast appears similar comparison studies. No suspicious groups of microcalcifications, spiculated or lobular masses, architectural distortion or other secondary signs of malignancy are mammographically apparent. Overall Assessment: Benign, BI-RAD 2 Management: Screening Mammogram of both breasts in 1 year. A negative mammogram report should not preclude additional follow up of suspicious palpable abnormalities. Patient should continue monthly self breast exam. A clinical breast exam by your physician is recommended on an annual basis and results should be correlated with mammographic findings. Electronically signed and approved by: Tin Da Silva D.O. Radiologis
== END | disposition home or self-care (01) ==
LOC: RADMAMWWP 13:02
PROVIDERS: ATTEND Obstetrics & Gynecology
DX: Z12.31 Encounter for screening mammogram for malignant neoplasm of breast (principal)
CPT/HCPCS: 77063; 77067

== ENCOUNTER 2022-09-27 07:44 | Day surgery (SDC) | payer BC ==
[2022-09-25 10:30] VITALS: BMI 27.8
--- NOTE | 2022-09-27 07:19 | P.HPOB ---
History of Present Illness H&P Date: 09/27/22 Chief Complaint: left pelvic pain 42-year-old presents for diagnostic laparoscopy and removal of left dermoid using da Quinton possible left salpingo-oophorectomy. Review of Systems All systems: negative Constitutional: Denies chills, Denies fever Eyes: denies blurred vision, denies pain Ears, nose, mouth and throat: Denies headache, Denies sore throat Cardiovascular: Denies chest pain, Denies shortness of breath Respiratory: Denies cough Gastrointestinal: Denies abdominal pain, Denies diarrhea, Denies nausea, Denies vomiting Genitourinary: Denies dysuria, Denies hematuria Musculoskeletal: Denies myalgias Integumentary: Denies pruritus, Denies rash Neurological: Denies numbness, Denies weakness Psychiatric: Denies anxiety, Denies depression Endocrine: Denies fatigue, Denies weight change Past Medical History Past Medical History: No Reported History History of Any Multi-Drug Resistant Organisms: None Reported Past Surgical History: Appendectomy Additional Past Surgical History / Comment(s): RIGHT OOPHORECTOMY AND SALPINGECTOMY Past Anesthesia/Blood Transfusion Reactions: Postoperative Nausea & Vomiting (PONV) Past Psychological History: Anxiety, Depression Smoking Status: Current some day smoker Past Alcohol Use History: Occasional Past Drug Use History: Marijuana Additional Drug Use History / Comment(s): OCCASIONAL EDIBLES FOR SLEEP - Past Family History Father Family Medical History: No Reported History Medications and Allergies Home Medications Medication Instructions Recorded Confirmed Type FLUoxetine HCL [PROzac] 40 mg PO DAILY 09/25/22 09/25/22 History Allergies Allergy/AdvReac Type Severity Reaction Status Date / Time No Known Allergies Allergy Verified 09/25/22 10:21 Exam Osteopathic Statement: *. No significant issues noted on an osteopathic structural exam other than those noted in the History and Physical/Consult. Heart: Regular rate and rhythm Lungs: Clear to auscultation bilaterally Abdomen: Soft, nontender Extremities: Negative Homans sign Assessment and Plan (1) Dermoid cyst Status: Acute Code(s): D36.9 - BENIGN NEOPLASM, UNSPECIFIED SITE SNOMED Code(s): 538332780 Plan: Diagnostic laparoscopy with removal of left dermoid cyst using da Quinton with possible left salpingo-oophorectomy
[~2022-09-27 07:44] MED LIST: DEXAMETHASONE SOD PHOSPHATE 4 MG/ML 1 ML VIAL IV ONE; HYDROmorphone 0.5 MG/0.5 ML SYRINGE IVP PRN; LACTATED RINGERS 1,000 ML IV SCH; LIDOCAINE 1% (10MG/ML) FOR IV START INTRADERMA PRN; ONDANSETRON 4 MG/2 ML VIAL IVP ONE; Pre Op ABX Message 1 EACH MISC MISCELLANE ONE; SCOPOLAMINE 1 MG/72 HR PATCH TRANSDERM ONE; droPERidol 5 MG/2 ML VIAL IVP ONE
[2022-09-27] MEDS ORDERED: LACTATED RINGERS 1,000 ML IV ONE (08:37)
[2022-09-27] MEDS ORDERED: NEOSTIGMINE 1 MG/ML 10 ML VIAL ONE (09:39)
[2022-09-27] MEDS ORDERED: MIDAZOLAM 2 MG/2 ML VIAL ONE (09:39)
[2022-09-27] MEDS ORDERED: fentaNYL (PF) 50 MCG/ML 2 ML AMP ONE (09:39)
[2022-09-27] MEDS ORDERED: PROPOFOL 10 MG/ML 20 ML VIAL IV ONE (09:39)
[2022-09-27] MEDS ORDERED: ROCURONIUM 10 MG/ML (5 ML VIAL) IV ONE (09:39)
[2022-09-27] MEDS ORDERED: HYDROmorphone (PF) 1 MG/ML ONE (09:39)
[2022-09-27] MEDS ORDERED: LIDOCAINE 2% INJ 20 MG/ML (2 ML VIAL) ONE (09:39)
[2022-09-27] MEDS ORDERED: GLYCOPYRROLATE 0.2 MG/ML 2 ML VIAL ONE (09:39)
[2022-09-27] MEDS ORDERED: BUPIVACAINE (PF) 0.25% 30 ML VIAL SQ ONE (10:58)
--- NOTE | 2022-09-27 11:09 | P.OP ---
Date of Procedure: 09/27/22 Preoperative Diagnosis: 1. Left Dermoid cyst 2. pelvic pain Postoperative Diagnosis: 1. left dermoid cyst 2. pelvic pain 3. omental adhesions Procedure(s) Performed: Laparoscopic left dermoid cystectomy, extensive lysis of adhesions using da Quinton. Anesthesia: GETA Surgeon: Maryam Howe Estimated Blood Loss (ml): 10 IV fluids (ml): 500 Urine output (ml): 350 Pathology: other (Left dermoid cyst with some ovarian tissue) Condition: stable Disposition: PACU Operative Findings: Extensive omental adhesions along the anterior abdominal wall. Absent right ovary and tube, dermoid cyst on left ovary. Description of Procedure: Patient taken the operating room where general anesthesia was obtained without difficulty. She is prepped and draped in normal sterile fashion dorsal lithotomy position, legs placed in the Tam stirrups. Weighted speculum placed in the vagina and the anterior lip the cervix was grasped with single-tooth tenaculum. The uterus sounded to 9 cm. the kroner manipulator was placed. Mcduffie catheter was also placed. Attention was then turned to the abdomen and gloves were changed. A 5 mm supraumbilical incision was made the scalpel and a 5 mm optical trocar was placed under direct visualization. Immediately omental adhesions were seen. 10 cm to the right of this and 2 cm down a 5 mm incision was made and 8 mm da Quinton port was placed under direct visualization. Same measurements on the opposite side of the patient's abdomen, the 5 mm incision was made and 8 mm da Quinton port was placed under direct visualization. In the left upper quadrant a 10 mm incision was made and a 10 mm optical trocar was placed under direct visualization. The 5 mm optical trocar was then replaced with the 8 mm da Quinton camera port. I used the disposable laparoscopic Metzenbaum suctioned to monopolar cautery to take down these omental adhesions. The robot was docked on patient's left side. The camera was introduced and then the monopolar curved scissor and the vessel sealer were placed under direct visualization. I broke scrub and went to the physician console. I took down a few more omental adhesions using the vessel sealer and monopolar curved scissors. When I could see the pelvic anatomy, the right ovary is surgically missing the left ovary has a corpus luteum cyst and a dermoid cyst on the medial portion. I grasped the fallopian tube with the vessel sealer and used the scissors to make a linear cut along these cysts. I grasped the ovarian tissue with the vessel sealer and dissected the cyst off the ovary with the monopolar curved scissors. When this was almost completely as the vessel sealer to cut across the rest of the ovary attached to the cyst to seal and cut this area. Hemostasis was assured with the monopolar curved scissors. There was a hole in the mesosalpinx from grasping at which was cauterized with the monopolar curved scissors and hemostasis was assured. The pharmaceutical assistant piece of ovary were placed into a #10 bag and pulled through the pharmaceutical assistant port. The pelvis was copiously irrigated. All instruments were removed from the abdomen and pelvis. The abdominal incisions were closed with 4-0 Vicryl in a subcuticular fashion. Patient tolerated the procedure well, sponge and instrument counts correct 2 and she was taken to recovery room in stable condition condition
[2022-09-27 11:18] VITALS: TEMP 97.2
[2022-09-27 11:31] VITALS: RESP 16
[2022-09-27] MEDS ORDERED: Acetaminophen-Codeine 300-30mg TAB ONE (12:23)
[2022-09-27 12:45] VITALS: BP 136/86; PULSE 83
== END 2022-09-27 13:10 | disposition home or self-care (01) ==
LOC: OR 07:44
PROVIDERS: ATTEND Obstetrics & Gynecology
DX: D27.1 Benign neoplasm of left ovary (principal); N83.12 Corpus luteum cyst of left ovary; K66.0 Peritoneal adhesions (postprocedural) (postinfection); Z90.721 Acquired absence of ovaries, unilateral; F41.9 Anxiety disorder, unspecified; F32.A Depression, unspecified; F10.20 Alcohol dependence, uncomplicated; F17.200 Nicotine dependence, unspecified, uncomplicated; Z90.79 Acquired absence of other genital organ(s); Z90.49 Acquired absence of other specified parts of digestive tract; Z79.899 Other long term (current) drug therapy
CPT/HCPCS: 58662; S2900; 81025; 88305; 88311

== ENCOUNTER → 2024-02-05 | Outpatient (CLI) | payer BC ==
--- NOTE | 2024-02-06 08:13 | MM ---
Reason for Exam: Screening (asymptomatic). Last mammogram was performed 1 year(s) and 9 month(s) ago. Patient History: Menarche at age 11. First Full-Term at age 37. Late child-bearing (after 30). Right ovary removed at age 9. Premenopausal. Patient has history of breast feeding. Risk Values: Nila 5 year model risk: 1.1%. NCI Lifetime model risk: 13.0%. Prior Study Comparison: 11/17/2018 Left Diagnostic Mammogram, [facility]. 04/07/2020 Bilateral Screening Mammogram, [facility]. 05/09/2022 Bilateral MG 3D screening mammo w/cad, [facility]. Tissue Density: There are scattered areas of fibroglandular density. Findings: Analyzed By CAD. Right breast: There is no suspicious group of microcalcifications or new suspicious mass. Left breast: There is no suspicious group of microcalcifications or new suspicious mass. Overall Assessment: Negative, BI-RAD 1 Management: Screening Mammogram of both breasts in [address] [facility] will attempt to contact patient to return for supplemental views and ultrasound if indicated. Patient should continue monthly self-breast exams. A clinical breast exam by your physician is recommended on an annual basis. This exam should not preclude additional follow-up of suspicious palpable abnormalities. Note on Nila scores and lifetime risk: 1. A Nila score greater than 3% is considered moderate risk. If this is the case, consider specialist referral to assess eligibility for a risk reducing agent. 2. If overall lifetime risk for the development of breast cancer is 20% or higher, the patient may qualify for future screening with alternating mammogram and breast MRI. [facility], , 02/06/2024 8:10 AM. Electronically signed and approved by: Alberto Morales DO
== END | disposition home or self-care (01) ==
LOC: RADMAMWWP 11:18
PROVIDERS: ATTEND Obstetrics & Gynecology
CPT/HCPCS: 77063; 77067

== ENCOUNTER 2024-11-06 06:22 | Day surgery (SDC) | payer BC ==
[2024-11-04 11:47] VITALS: BMI 27.8
[~2024-11-06 06:22] MED LIST changes: -DEXAMETHASONE SOD PHOSPHATE 4 MG/ML 1 ML VIAL IV ONE; -HYDROmorphone 0.5 MG/0.5 ML SYRINGE IVP PRN; -LACTATED RINGERS 1,000 ML IV SCH; -ONDANSETRON 4 MG/2 ML VIAL IVP ONE; -Pre Op ABX Message 1 EACH MISC MISCELLANE ONE; -SCOPOLAMINE 1 MG/72 HR PATCH TRANSDERM ONE; -droPERidol 5 MG/2 ML VIAL IVP ONE
[2024-11-06 06:53] VITALS: RESP 16; TEMP 97.6
[2024-11-06] MEDS: LACTATED RINGERS 1,000 ML IV SCH (06:53)
[2024-11-06] MEDS: IV FLUID CONTINUATION 1,000 ML IV ONE (06:53)
[2024-11-06] MEDS ORDERED: PROPOFOL 10 MG/ML 20 ML VIAL IV ONE (07:16)
[2024-11-06] MEDS ORDERED: LIDOCAINE 2% (PF) 20 MG/ML 5 ML VIAL ONE (07:16)
--- NOTE | 2024-11-06 07:41 | P.PCN ---
Date of Procedure: 11/06/24 Procedure(s) Performed: Brief history: Patient is a pleasant 44-year-old white female scheduled for an elective upper endoscopy as well as colonoscopy as a part of evaluation of GERD and screening for colon cancer Procedure performed: Esophagogastroduodenoscopy with biopsy Colonoscopy Preoperative diagnosis: GERD Screening for colon cancer [place]est[place]: [facility] [place] Procedure: After informed consent was obtained from the patient was brought into the endoscopy unit and IV sedation was administered by anesthesia under continuous monitoring. Initially upper endoscopy was done. The Olympus GF 160 video endoscope was inserted inserted into the mouth and esophagus intubated without any difficulty and was gradually advanced into the stomach and duodenum and carefully examined. The bulb and second part of the duodenum appeared normal. The scope was then withdrawn into the stomach adequately insufflated with air and upon careful examination the antrum had diffuse erythema consistent with gastritis and biopsies were done from this area. Mucosa body, cardia and fundus appeared normal. The scope was then withdrawn into the esophagus. The GE junction was located at 40 cm to the incisors. It appeared regular to superficial erosions consistent with LA grade B reflux esophagitis. Rest of the esophagus appeared normal. Patient tolerated the procedure well. At this time the patient continued to remain sedation. Initial digital rectal examination was normal. Olympus CF 160 video colonoscope was then inserted into the rectum and gradually advanced to the transverse colon I was unable able to advance the scope any further. The scope was removed today. A colonoscopy (rectum and gradually advanced to the cecum with moderate to severe difficulty. Careful examination was performed as the scope was gradually being withdrawn. The prep was excellent. The cecum, ascending colon, transverse colon, descending colon, sigmoid colon and rectum appeared normal. Retroflexion was performed in the rectum and no lesions were noted. Patient tolerated the procedure well. Impression: 1. Upper endoscopy revealed mild antral gastritis and LA grade B reflux esophagitis 2. Colonoscopy was within normal limits with no evidence of colorectal neoplasia. Recommendations: Findings of this examination were discussed with the patient as well as her family. She was advised to follow-up with the biopsy results. Recommend Pepcid 20 mg twice daily as needed and follow antireflux measures. Repeat colonoscopy in 10 years.
[2024-11-06 07:50] VITALS: PULSE 81
[2024-11-06 08:07] VITALS: BP 128/86
== END 2024-11-06 08:19 | disposition home or self-care (01) ==
LOC: ORWHC2ENDO 06:22
PROVIDERS: ATTEND Internal Medicine Gastroenterology
DX: Z12.11 Encounter for screening for malignant neoplasm of colon (principal); K29.50 Unspecified chronic gastritis without bleeding; K21.00 Gastro-esophageal reflux disease with esophagitis, without bleeding; D68.51 Activated protein C resistance; F41.9 Anxiety disorder, unspecified; F32.A Depression, unspecified; Z91.89 Other specified personal risk factors, not elsewhere classified; Z79.899 Other long term (current) drug therapy
CPT/HCPCS: 81025; 88305; 45378; 43239; J2704; J2003